=== PATIENT | male | born 1985 | race African-American/Black ===

== ENCOUNTER 2020-08-25 13:43 | Emergency (ER) | payer OTHER ==
[2020-08-26 14:19] LABS: SARS-CoV-2 MS2 Positive; SARS-CoV-2 N Gene Positive; SARS-CoV-2 S Gene Positive; SARS-CoV-2 by NAA DETECTED (NotDetected); SARS-CoV-2 orf1ab Positive
== END 2020-08-25 14:57 | disposition home or self-care (01) ==
LOC: ERS 13:43
DX: U07.1 COVID-19 (principal)
CPT/HCPCS: 87635; 99283; U0003